=== PATIENT | male | born 1990 ===

== ENCOUNTER 2017-03-02 19:29 | Emergency (ER) | payer OTHER ==
[2017-03-02 19:35] VITALS: BP 145/68; PULSE 90; RESP 18; O2SAT 99
--- NOTE | 2017-03-02 20:15 | ED PDOC ---
HPI: General Adult Time Seen by Provider: 03/02/17 19:48 Chief Complaint (Nursing): Flu-like Symptoms Chief Complaint (Provider): fluke like symptoms History Per: Patient History/Exam Limitations: no limitations Additional Complaint(s): 26yo M in Ed with fever, chillsm, bodya ches sore thoart and chills x couple of hours. no cough no diarrhea no vomiting. Past Medical History Reviewed: Historical Data, Nursing Documentation, Vital Signs Vital Signs: Last Vital Signs Temp 101.2 F H 03/02/17 19:32 Pulse 90 03/02/17 19:32 Resp 18 03/02/17 19:32 BP 145/68 03/02/17 19:32 Pulse Ox 99 03/02/17 20:16 - Medical History PMH: No Chronic Diseases - Family History Family History: States: No Known Family Hx - Home Medications Home Medications: Ambulatory Orders Medication Instructions Recorded Amoxicillin [Amoxil 500 mg Cap] 500 mg PO BID #14 cap 03/02/17 - Allergies Allergies/Adverse Reactions: Allergies Allergy/AdvReac Type Severity Reaction Status Date / Time No Known Allergies Allergy Verified 03/02/17 19:32 Review of Systems ROS Statement: Except As Marked, All Systems Reviewed And Found Negative Constitutional: Positive for: Fever, Chills, Malaise Respiratory: Negative for: Cough Gastrointestinal: Negative for: Nausea, Vomiting, Abdominal Pain Physical Exam - Reviewed Nursing Documentation Reviewed: Yes Vital Signs Reviewed: Yes - Physical Exam Appears: Positive for: Non-toxic, No Acute Distress, Uncomfortable Head Exam: Positive for: ATRAUMATIC, NORMAL INSPECTION, NORMOCEPHALIC Skin: Positive for: Normal Color, Warm, DRY Eye Exam: Positive for: EOMI, Normal appearance, PERRL ENT: Positive for: Pharyngeal Erythema, Tonsillar Swelling. Negative for: Tonsillar Exudate Neck: Positive for: Normal, Painless ROM Cardiovascular/Chest: Positive for: Regular Rate, Rhythm Respiratory: Positive for: CNT, Normal Breath Sounds Gastrointestinal/Abdominal: Positive for: Normal Exam, Bowel Sounds, Soft. Negative for: Tenderness Neurologic/Psych: Positive for: Alert, Oriented - ECG O2 Sat by Pulse Oximetry: 99 - Progress ED Course And Treament: rapid strep test and motrin for fever Medical Decision Making Medical Decision Making: dx: pharyngitis will be d.c on amoxicillin and advised to have pmd f.u Disposition - Clinical Impression Clinical Impression: Pharyngitis - Patient ED Disposition Is Patient to be Admitted: No Counseled Patient/Family Regarding: Studies Performed, Diagnosis, Need For Followup, Rx Given - Disposition Referrals: [facility] [Outside] Disposition: Routine/Home Disposition Time: 21:13 Condition: STABLE Prescriptions: Amoxicillin [Amoxil 500 mg Cap] 500 mg PO BID #14 cap Instructions: Pharyngitis (ED) Forms: [employer] ([place]), [facility] ED School/Work Excuse
[2017-03-02 21:15] VITALS: TEMP 100.9
== END 2017-03-02 21:36 | disposition home or self-care (01) ==
LOC: H.ER 19:29
DX: J02.9 Acute pharyngitis, unspecified (principal)